=== PATIENT | male | born 1955 | race Caucasian/White ===

== ENCOUNTER 2017-09-22 03:21 | Observation (INO) | payer SELFPAY ==
[2017-09-22] MEDS ORDERED: NS 0.9% 1000 ML* 1,000 ML IV ONE (03:50)
[2017-09-22 04:17] LABS: Hematocrit 41 % (42-52); Hemoglobin 14.4 g/dl (14.0-18.0); Mean Corpuscular HGB Conc 35 g/dl (31-36); Mean Corpuscular Hemoglobin 32 pg (27-31); Mean Corpuscular Volume 92 fL (80-94); Mean Platelet Volume 8 um3 (7.4-10.4); Red Blood Count 4.45 10^6/ul (4.0-5.4); Red Cell Distribution Width 13 % (10.5-15); White Blood Count 6.7 10^3/ul (3.5-10.8)
[2017-09-22 04:32] LABS: ALT 20 U/L (7-52); AST 20 U/L (13-39); Albumin 4.3 g/dL (3.2-5.2); Alkaline Phosphatase 45 U/L (34-104); Anion Gap 12 mmol/L (2-11); BUN/Creatinine Ratio 12.7 (8-20); Blood Urea Nitrogen 15 mg/dL (6-24); CO2 Carbon Dioxide 24 mmol/L (22-32); Calcium 9.8 mg/dL (8.6-10.3); Chloride 102 mmol/L (101-111); EGFR African American 80.7 (>60); EGFR Non-African American 62.8 (>60); Glucose 112 mg/dL (70-100); Potassium 3.6 mmol/L (3.5-5.0); Sodium 138 mmol/L (133-145); Total Protein 7.3 g/dL (6.4-8.9)
[2017-09-22 04:33] LABS: Troponin I 0.01 ng/mL (<0.04)
[2017-09-22 05:03] LABS: TSH (Thyroid Stimulating Horm) 2.05 mcIU/mL (0.34-5.60)
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
[2017-09-22] MEDS ORDERED: Ondansetron INJ* 2 MG/ML VIAL IV PRN (05:29)
[2017-09-22 05:53] LABS: Alcohol < 10 mg/dL (<10)
[2017-09-22] MEDS: NS 0.9% 1000 ML* 1,000 ML IV SCH ×2 (07:14→17:13)
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
[2017-09-22] MEDS: Heparin VIAL(*) 5000 UNITS/ML VIAL (FIVE THOUSAND) SUBCUT SCH ×2 (07:34→13:36)
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
[2017-09-22] MEDS ORDERED: Omeprazole CAP* 20 MG PO SCH (09:00)
[2017-09-22] MEDS ORDERED: Ramipril CAP* 10 MG PO SCH (09:00)
[2017-09-22 10:14] LABS: Urine Bilirubin Negative (Negative); Urine Glucose Negative (Negative); Urine Nitrite Negative (Negative)
[2017-09-22 10:22] LABS: Benzodiazepine Urine Screen None Detected (None Detect)
--- NOTE | 2017-09-22 15:11 | ECHO ---
Patient: CRISSY CRISTOBAL [facility] Rec#: [id number] : 1955 Date: 09/22/2017 Age: 62y Height: 170.18 cm / 67.0 in Weight: 95.25 kg / 209.9 lbs Sex: M BSA: 2.06 Room#: 3 Admit Date#: 09/22/2017 Type: Inpatient Referring: Jo Hutton DO Reading: Meño Espinosa MD [employer] Supervisor: Esperanza Maciel,ROSIBELCS,RDMS CC: Christiane Flores NP Transthoracic Echocardiogram Indication: Syncope BP: 128/72 HR: 73 Rhythm: NSR Findings History: HTN, GERD Technical Comments: The study quality is good. Left Ventricle: The left ventricular chamber size is normal. Mild concentric left ventricular hypertrophy is observed. Global left ventricular wall motion and contractility are within normal limits. There is normal left ventricular systolic function. The estimated ejection fraction is 55-60%. Abnormal left ventricular diastolic filling is observed, consistent with impaired relaxation. Left Atrium: The left atrium is mildly dilated. Right Ventricle: The right ventricular chamber size and systolic function are within normal limits. The right ventricle wall thickness is mildly increased. Right Atrium: The right atrial cavity size is normal. Aortic Valve: The aortic valve is trileaflet. Systolic excursion of the aortic valve is normal. There is no evidence of aortic regurgitation. There is no evidence of aortic stenosis. Mitral Valve: There is mitral annular calcification. The mitral valve leaflets are mildly thickened. There is no evidence of mitral regurgitation. There is borderline mitral stenosis. Tricuspid Valve: The tricuspid valve leaflets are normal. There is trace tricuspid regurgitation. Unable to estimate the right ventricular systolic pressure. Pulmonic Valve: There is no evidence of pulmonic valve thickening. There is a trace pulmonic regurgitation. Pericardium: There is no significant pericardial effusion. Aorta: The aortic root appears normal. There is no dilatation of the aortic arch. Pulmonary Artery: The main pulmonary artery is not well visualized. Venous: The inferior vena cava is dilated. There is a greater than 50% respiratory change in the inferior vena cava dimension. Conclusions Global left ventricular wall motion and contractility are within normal limits. There is normal left ventricular systolic function. The estimated ejection fraction is 55-60%. The right ventricular chamber size and systolic function are within normal limits. There is no evidence of aortic stenosis. There is no evidence of mitral regurgitation. There is trace tricuspid regurgitation. Unable to estimate the right ventricular systolic pressure. There is no significant pericardial effusion. Measurements Name Value Normal Range RVIDd (AP) 2D 3 cm (0.9 - 2.6) RVDdMajor (2D) 2.7 cm (2.2 - 4.4) RAd ISD 4CH 4.6 cm (3.4 - 4.9) RA (A4C)W 4.7 cm (2.9 - 4.6) IVSd (2D) 1.2 cm (0.6 - 1) LVPWd (2D) 1.3 cm (0.6 - 1) LVIDd (2D) 4.2 cm (3.6 - 5.4) LVIDs (2D) 2.5 cm - LV FS (2D) 42 % (25 - 45) Aortic Annulus 2.2 cm (1.4 - 2.6) Ao root diameter (2D) 3.2 cm (2.1 - 3.5) Ascending Ao 3.1 cm (2.1 - 3.4) Aortic arch 2.8 cm (1.8 - 3.4) LA dimension (AP) 2D 4.3 cm (2.3 - 3.8) LAd ISD 4CH 5.7 cm (2.9 - 5.3) LA ISD 4CH W 5 cm (2.5 - 4.5) Name Value Normal Range LA ESV SP 4CH (A/L) 62.92 ml - LA ESV SP 2CH (A/L) 92.78 ml - LA ESV BP (A/L) 79.56 ml - LA ESV BP (A/L) index 38 ml/m2 - LA ESV SP 4CH (MOD) 59.41 ml - LA ESV SP 2CH (MOD) 87.33 ml - Name Value Normal Range MV E-wave Vmax 0.9 m/sec - MV deceleration time 197 msec - MV A-wave Vmax 1 m/sec - MV E:A ratio 0.9 ratio - P. vein S-wave Vmax 0.7 m/sec - P. vein D-wave Vmax 0.5 m/sec - P. vein S:D Vmax ratio 1.24 ratio - P. vein A-wave duration 111 msec - LV septal e' Vmax 0.08 m/sec - LV lateral e' Vmax 0.06 m/sec - LV E:e' septal ratio 11.3 ratio - LV E:e' lateral ratio 15 ratio - Name Value Normal Range AV Vmax 1.7 m/sec - AV VTI 31.5 cm - AV peak gradient 11.4 mmHg - AV mean gradient 5.8 mmHg - LVOT Vmax 1.3 m/sec - LVOT VTI 26.1 cm - LVOT peak gradient 7 mmHg - LVOT mean gradient 3.2 mmHg - RAMILA Vmax 0.6 m/sec - Name Value Normal Range MV Vmax 1.2 m/sec - MV VTI 32 cm - MV peak gradient 6 mmHg - MV mean gradient 2.5 mmHg - MV PHT 57 msec - MVA (PHT) 3.9 cm2 - Name Value Normal Range RAP 8 mmHg - IVC diameter 2.2 cm - Name Value Normal Range PV Vmax 1 m/sec - PV peak gradient 4 mmHg -
[2017-09-22 18:01] VITALS: BP 135/79
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
== END 2017-09-22 18:46 | disposition home or self-care (01) ==
LOC: ED 03:21 → MEDTELE 05:26
PROVIDERS: ADMIT Hospitalist; ATTEND Internal Medicine
DX: R55 Syncope and collapse (principal); I10 Essential (primary) hypertension; K21.9 Gastro-esophageal reflux disease without esophagitis; Z79.899 Other long term (current) drug therapy; R94.31 Abnormal electrocardiogram [ECG] [EKG]
CPT/HCPCS: 36415; 70450; 71010; 80053; 80307; 80320; 81003; 83735; 84443; 84484; 85025; 85610; 85730; 93005; 93306; 96360; 96361; 96372; 99283; G0378; G0480; J1644

== ENCOUNTER 2018-07-15 11:37 | Emergency (ER) | payer BC, OTHER ==
[2018-07-15 11:59] VITALS: BP 148/90
[2018-07-15] MEDS ORDERED: Dexamethasone IV* 4 MG/ML 1 ML (4 MG) IM ONE (12:09)
[2018-07-15] MEDS ORDERED: Orphenadrine Citrate IV* 30 MG/ML 2 ML VIAL IM ONE (12:09)
[2018-07-15] MEDS ORDERED: Ketorolac INJ* 60 MG/2 ML VIAL IM ONE (12:09)
--- NOTE | 2018-07-15 12:15 | ED ---
Neck Pain - HPI Summary HPI Summary: This pt is a 63 y/o male presenting to [facility] c/o stiff neck x2 days. Pt reports that he woke up two days ago with a stiff neck. Denies trauma or injury to neck. He states he woke up yesterday with worsening neck pain. He has taken ibuprofen and placed icy hot patches with mild relief. Pt notes that he woke up better this morning but throughout the day his neck pain worsened. His neck pain is aggravated with head movement. Denies weakness, numbness, tingling, fever, chills, back pain, urinary or bowel dysfunction, difficulty ambulating. PMHx includes HTN, diverticulitis. - History of Current Complaint Chief Complaint: EDNeckComplaint Stated Complaint: NECK PAIN Time Seen by Provider: 07/15/18 12:00 Hx Obtained From: Patient Onset/Duration Of Injury/Symptoms: Days Mechanism Of Injury: No Known Trauma Timing: Lasting Days Onset/Duration: Started days ago, Still Present Severity Currently: Severe Pain Intensity: 8 Pain Scale Used: 0-10 Numeric Location: Discrete At: - neck Character: Stiff Aggravating Factors: Movement Alleviating Factors: Nothing Associated Signs & Symptoms: Negative: Swelling, Redness, Bruising, Fever, Nuchal Rigity, Weakness, Headache, Paresthesia - Allergies/Home Medications Allergies/Adverse Reactions: Allergies Allergy/AdvReac Type Severity Reaction Status Date / Time No Known Allergies Allergy Verified 07/15/18 11:44 PMH/Surg Hx/FS Hx/Imm Hx Endocrine/Hematology History: Denies: Hx Diabetes Cardiovascular History: Reports: Hx Hypertension GI History: Reports: Hx Gastroesophageal Reflux Disease, Other GI Disorders - Diverticulitis Sensory History: Denies: Hx Contacts or Glasses, Hx Hearing Aid Opthamlomology History: Denies: Hx Contacts or Glasses Infectious Disease History: No Infectious Disease History: Denies: Traveled Outside the [place] in Last 30 Days - Family History Known Family History: Negative: Cardiac Disease, Hypertension, Diabetes Family History: FHx of high cholesterol - Social History Alcohol Use: Daily Alcohol Amount: 6 pack of beer a day Substance Use Type: Reports: None Smoking Status (MU): Never Smoked Tobacco Review of Systems Negative: Fever, Chills Negative: incontinence Musculoskeletal: Other - POS: neck pain Negative: Other - back pain Negative: Headache, Weakness, Paresthesia, Numbness All Other Systems Reviewed And Are Negative: Yes Physical Exam - Summary Physical Exam Summary: VITAL SIGNS: Reviewed. GENERAL: Patient is a well-developed and nourished male who is lying comfortable in the stretcher. Patient is not in any acute respiratory distress. HEAD AND FACE: No signs of trauma. No ecchymosis, hematomas or skull depressions. No sinus tenderness. EYES: PERRLA, EOMI x 2, No injected conjunctiva, no nystagmus. EARS: Hearing grossly intact. Ear canals and tympanic membranes are within normal limits. MOUTH: Oropharynx within normal limits. NECK: Supple, trachea is midline, no adenopathy, no JVD, no carotid bruit, no c- spine tenderness, neck with full ROM. Pt has positive sternocleidomastoid muscle tenderness at palpation. CHEST: Symmetric, no tenderness at palpation LUNGS: Clear to auscultation bilaterally. No wheezing or crackles. CVS: Regular rate and rhythm, S1 and S2 present, no murmurs or gallops appreciated. ABDOMEN: Soft, non-tender. No signs of distention. No rebound, no guarding, and no masses palpated. Bowel sounds are normal. EXTREMITIES: FROM in all major joints, no edema, no cyanosis or clubbing. NEURO: Alert and oriented x 3. No acute neurological deficits. Speech is normal and follows commands. SKIN: Dry and warm Triage Information Reviewed: Yes Vital Signs On Initial Exam: Initial Vitals Temp Pulse Resp BP Pulse Ox 97.9 F 72 16 150/90 96 07/15/18 11:40 07/15/18 11:40 07/15/18 11:40 07/15/18 11:40 07/15/18 11:40 Vital Signs Reviewed: Yes Diagnostics - Vital Signs Vital Signs Temp Pulse Resp BP Pulse Ox 07/15/18 11:58 98.4 F 72 16 148/90 97 07/15/18 11:40 97.9 F 72 16 150/90 96 - Laboratory Result Diagrams: 07/15/18 13:32 07/15/18 13:32 Lab Statement: Any lab studies that have been ordered have been reviewed, and results considered in the medical decision making process. - CT Cervical spine CT CT Interpretation: Positive (See Comments) - IMPRESSION: 1 Prevertebral soft tissue swelling and effusion. There is a large calcific deposit anterior to the C2 vertebra. 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 2. No evidence for fracture or subluxation. 3. Mild to moderate cervical spondylosis as described. Dr. Senior has reviewed this report. CT Interpretation Completed By: Radiologist Neck Course/Dx - Course Assessment/Plan: This pt is a 63 y/o male presenting to [facility] c/o stiff neck x2 days. Pt reports that he woke up two days ago with a stiff neck. Denies trauma or injury to neck. He states he woke up yesterday with worsening neck pain. He has taken ibuprofen and placed icy hot patches with mild relief. Pt notes that he woke up better this morning but throughout the day his neck pain worsened. His neck pain is aggravated with head movement. Denies weakness, numbness, tingling, fever, chills, back pain, urinary or bowel dysfunction, difficulty ambulating. PMHx includes HTN, diverticulitis. C-spine CT impression: 1. PREVERTEBRAL SOFT TISSUE SWELLING AND EFFUSION. THERE IS A LARGE CALCIFIC DEPOSIT ANTERIOR TO THE C2 VERTEBRA. 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 2. NO EVIDENCE FOR FRACTURE OR SUBLUXATION. 3. MILD TO MODERATE CERVICAL SPONDYLOSIS DESCRIBED. In the ED course the patient was given Decadron, Toradol, and Norflex and his symptoms have significantly improved. The patient is ambulating, doesn't have any weakness or tingling in the lower extremities and upper extremities, he doesn't have any difficulty ambulating. However because of the findings on the C-spine CT I discussed the case with with Dr. Dorantes from neurology and he recommends blood work. Blood work without any significant abnormality ESR is only 32, glucose 101 and CRP 21.8. The patient continues to be asymptomatic, the patient reports that the pain has significantly improved, the patient is afebrile, the patient doesnt have any neurological focal deficits and the patient has no ataxia. Therefore the patient will be discharged home with follow-up with primary care physician and neurology. He was instructed to return to the emergency room immediately if he develops any weakness, tingling, numbness, or pain the upper or lower extremities or any other symptom. The patient understands and agrees. I discussed all the findings and test results with the patient. Patient was instructed to return to the emergency room immediately if any of the symptoms return or worsens. Plan of care was discussed with the patient and understands and agrees. All questions were answered at patient satisfaction. There were no further complaints or concerns. Lung exam before discharge: CTA B/L. Good air exchange. No wheezing or crackles heard. CVS: S1 and S2 present. No murmurs appreciated. Patient is alert and oriented x 3. Patient is hemodynamically stable. Patient will be discharged home with follow up PCP in the next 2-3 days. - Diagnoses Differential Dx/HQI/PQRI: Positive: Arthritis, Cervical Fracture, Sprain, Strain , Torticollis Provider Diagnoses: Neck pain - Physician Notifications Discussed Care Of Patient With: Alex Dorantes Time Discussed With Above Provider: 13:57 Instructed by Provider To: Other - I discussed pt care with Dr. Dorantes, neurologist, who reports that if the pt's pain is controlled, he has no neurological deficits, and has a normal blood work he can be discharged home with follow up with neurology to work this out as an outpatient. Otherwise, he recommends an MRI with and without contrast. Discharge - Sign-Out/Discharge Documenting (check all that apply): Patient Departure - discharge home - Discharge Plan Condition: Stable Disposition: HOME Prescriptions: Cyclobenzaprine TAB* [Flexeril 10 MG TAB*] 10 mg PO TID PRN #12 tab PRN Reason: spasm HYDROcodone/ACETAMIN 5-325 MG* [[place] 5-325 TAB*] 1 tab PO Q6H PRN #12 tab MDD 4 PRN Reason: Pain Ibuprofen TAB* [Motrin TAB* 800 MG] 800 mg PO Q8H PRN #20 tab PRN Reason: Pain methylPREDNISolone [Medrol Dosepak 4 MG*] 0 mg PO .SEE ELIJAH INSTRUCTION #1 elijah Patient Education Materials: Neck Pain (ED) Referrals: Christiane Reddy [Primary Care Provider] - Alex Dorantes MD [Medical Doctor] - Additional Instructions: Follow up with Dr. Dorantes, neurologist, in 3-5 days. FOLLOW UP WITH YOUR PRIMARY CARE PROVIDER WITHIN ONE WEEK FOR HIGH BLOOD PRESSURE NOTED TODAY. RETURN TO THE ED FOR ANY NEW OR WORSENING SYMPTOMS. - Billing Disposition and Condition Condition: STABLE Disposition: Home - Attestation Statements Document Initiated by Scribe: Yes Documenting Scribe: Manuela Cartwright Provider For Whom Scribe is Documenting (Include Credential): Ken Senior MD Scribe Attestation: I, Manuela Cartwright, scribed for Ken Senior MD on 07/18/18 at 1339. Scribe Documentation Reviewed: Yes Provider Attestation: The documentation as recorded by the [email or web address] accurately reflects the service I personally performed and the decisions made by me, Ken Senior MD
--- NOTE | 2018-07-15 13:09 | RAD ---
INDICATION: Neck pain. COMPARISON: There are no prior studies available for comparison. TECHNIQUE: Contiguous axial sections were obtained from the skull base through the T2 vertebra. Images were reconstructed in the sagittal and coronal planes. FINDINGS: VERTEBRA: There is mild retrolisthesis of C5 relative to C6 of approximately 2 mm. There is prevertebral soft tissue swelling and an effusion in the prevertebral space. There is a relatively large calcific deposit present anterior to the C2 vertebra suggestive of hydroxyapatite deposition disease. No fracture is seen. C2-C3: There is mild posterior uncinate process spurring and moderate hypertrophic changes within the left facet joint. No spinal canal narrowing is present. There is mild neural foraminal narrowing on the left side. C3-C4: There is mild posterior uncinate process spurring and hypertrophic changes within the facet joints. No spinal canal narrowing is present. There is mild to moderate bilateral neural foraminal narrowing. C4-C5: There is mild posterior uncinate process spurring and hypertrophic change within the right facet joint. No significant spinal canal narrowing is present. There is moderate neural foraminal narrowing on the left side. C5-C6: There is posterior uncinate process spurring associated with a mild broad-based disc bulge. There appears to be mild spinal canal narrowing. There is moderate neural foraminal narrowing on the left side and mild neural foraminal narrowing on the right side. C6-C7: There appears to be a moderate broad-based disc bulge causing mild to moderate spinal canal narrowing. There is moderate neural foraminal narrowing on the left side. LUNG APICES: The lung apices appear clear. IMPRESSION: 1. PREVERTEBRAL SOFT TISSUE SWELLING AND EFFUSION. THERE IS A LARGE CALCIFIC DEPOSIT ANTERIOR TO THE C2 VERTEBRA. 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 2. NO EVIDENCE FOR FRACTURE OR SUBLUXATION. 3. MILD TO MODERATE CERVICAL SPONDYLOSIS DESCRIBED.
[2018-07-15 13:50] LABS: ABS Basophils 0 10^3/ul (0-0.2); ABS Eosinophils 0.2 10^3/ul (0-0.6); ABS Lymphocytes 1.2 10^3/ul (1.0-4.8); ABS Monocytes 0.7 10^3/ul (0-0.8); ABS Nucleated RBC 0 10^3/ul; Eosinophil % 1.8 % (0-6); Hematocrit 41 % (42-52); Hemoglobin 14.3 g/dl (14.0-18.0); Lymphocyte % 12.8 % (25-47); Mean Corpuscular HGB Conc 35 g/dl (31-36); Mean Corpuscular Hemoglobin 32 pg (27-31); Mean Corpuscular Volume 91 fL (80-94); Mean Platelet Volume 8.3 um3 (7.4-10.4); Nucleated Red Blood Cells % 0.1; Platelet Count 242 10^3/ul (150-450); Red Blood Count 4.52 10^6/ul (4.00-5.40); Red Cell Distribution Width 14 % (10.5-15)
[2018-07-15 14:08] LABS: EGFR Non-African American 124.5 (>60)
== END 2018-07-15 16:30 | disposition home or self-care (01) ==
LOC: ED 11:37
DX: M54.2 Cervicalgia (principal); M43.6 Torticollis; I10 Essential (primary) hypertension; K21.9 Gastro-esophageal reflux disease without esophagitis; Z79.899 Other long term (current) drug therapy
CPT/HCPCS: 36415; 72125; 80053; 82607; 84443; 85025; 85652; 86140; 96372; 99281; J1100; J1885; J2360